=== PATIENT | male | born 1995 | race American Indian/Alaskan Native ===

== ENCOUNTER 2016-06-21 09:45 | Emergency (ER) | payer SELFPAY ==
[2016-06-21 11:33] VITALS: BP 127/72
[2016-06-21] MEDS ORDERED: XYLOCAINE 1% MPF 5 mL INFILTRATI ONE (11:52)
[2016-06-21] MEDS ORDERED: ZITHROMAX PO ONE (11:52)
[2016-06-21] MEDS ORDERED: ROCEPHIN IM ONE (11:52)
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
[2016-06-21 12:34] LABS: Bacteria,Urine 1+ /HPF (Negative); Bilirubin,Urine NEG (Negative); Blood,Urine NEG (Negative); Ketones,Urine NEG (Negative); Leukocyte Esterase,Urine LG (Negative); Mucus,Urine 2+ /HPF; Nitrite,Urine NEG (Negative); Protein,Urine <15 mg/dL mg/dL (Negative); Urobilinogen,Urine < 2.0 mg/dL (<2.0)
[2016-06-21 12:37] LABS: WBC,Urine > 182.0 /HPF (0.0-6.0)
== END 2016-06-21 12:51 | disposition home or self-care (01) ==
LOC: ED 09:45
DX: N34.2 Other urethritis (principal); Z87.891 Personal history of nicotine dependence
CPT/HCPCS: 81001; 87591; 96372; 99283; J0696